=== PATIENT | male | born 1980 | race Caucasian/White ===

== ENCOUNTER 2022-06-08 22:29 | Emergency (ER) | payer OTHER ==
[2022-06-08 22:41] VITALS: TEMP 98.6
--- NOTE | 2022-06-08 23:23 | XR ---
EXAMINATION TYPE: XR hand limited RT DATE OF EXAM: 06/08/2022 COMPARISON: NONE HISTORY: Pain TECHNIQUE: 2 view FINDINGS: Metacarpals are intact. The fingers are intact. I see no fracture nor dislocation. No sizab le foreign body. IMPRESSION: Negative right hand exam. No fracture.
--- NOTE | 2022-06-08 23:28 | XR ---
EXAMINATION TYPE: XR wrist complete RT DATE OF EXAM: 06/08/2022 COMPARISON: NONE HISTORY: Pain and swelling TECHNIQUE: 4 views FINDINGS: The carpal bones are intact. I see no fracture nor dislocation. Metacarpals are intact. Rad iocarpal joint appears normal. IMPRESSION: Negative right wrist exam.
--- NOTE | 2022-06-08 23:28 | XR ---
EXAMINATION TYPE: XR forearm RT DATE OF EXAM: 06/08/2022 COMPARISON: NONE HISTORY: Pain and swelling TECHNIQUE: 2 views FINDINGS: Radius and ulna appear intact. Elbow joint and wrist joint appear intact. IMPRESSION: Negative right forearm exam
--- NOTE | 2022-06-08 23:30 | XR ---
EXAMINATION TYPE: XR elbow complete RT DATE OF EXAM: 06/08/2022 COMPARISON: NONE HISTORY: Pain TECHNIQUE: 3 views FINDINGS: There is no evidence of fracture nor dislocation. Joint spaces are normal. No sign of elbow joint effusion. IMPRESSION: Negative right elbow exam.
[2022-06-09] MEDS ORDERED: methocarbamoL 750 MG TAB PO STA (00:18)
[2022-06-09] MEDS ORDERED: BACITRACIN OINT 1 EACH PACKET TOPICAL ONE (00:18)
--- NOTE | 2022-06-09 00:21 | ED ---
General Adult HPI - General Chief complaint: Extremity Injury, Upper Stated complaint: Right wrist and hand Injury Time Seen by Provider: 06/09/22 00:02 Source: patient, family Mode of arrival: ambulatory Limitations: no limitations - History of Present Illness Initial comments: This is a 42-year-old male with no past medical history presents emergency department after an injury to his right arm. The patient stated that it got stuck in an engine lathe while he did have a glove on his arm and it did twist his arm. The patient stated this happened approximately one hour prior to arrival. The patient was given 600 mg of Motrin on arrival and had improvement of his pain. The patient had decreased range of motion in the hand but was able to move it but was decreased secondary to pain. The patient denied any other pain or trauma at this time. The patient had good capillary refill in his upper extremities and had no numbness or tingling noted. - Related Data Previous Rx's Medication Instructions Recorded methocarbamoL [Robaxin-750] 750 mg PO TID #52 tab 06/09/22 Allergies Allergy/AdvReac Type Severity Reaction Status Date / Time No Known Allergies Allergy Verified 06/08/22 22:41 Review of Systems ROS Statement: Those systems with pertinent positive or pertinent negative responses have been documented in the HPI. ROS Other: All systems not noted in ROS Statement are negative. Past Medical History Additional Past Medical History / Comment(s): migraine History of Any Multi-Drug Resistant Organisms: None Reported Past Surgical History: Hernia Repair Past Psychological History: No Psychological Hx Reported Smoking Status: Vaper Past Alcohol Use History: Occasional Past Drug Use History: None Reported General Exam Limitations: no limitations General appearance: alert, in no apparent distress Head exam: Present: atraumatic, normocephalic Eye exam: Present: normal appearance, PERRL Pupils: Present: normal accommodation ENT exam: Present: normal exam, normal oropharynx, mucous membranes moist Neck exam: Present: normal inspection, full ROM Respiratory exam: Present: normal lung sounds bilaterally Cardiovascular Exam: Present: regular rate, normal rhythm GI/Abdominal exam: Present: soft, normal bowel sounds Extremities exam: Present: other (Tenderness to palpation to the right dorsal wrist with decreased range of motion secondary to pain. There was an abrasion noted to the ventral aspect of the right forearm however there was no obvious deformities noted) Back exam: Present: normal inspection, full ROM Neurological exam: Present: alert, oriented X3, CN II-XII intact Psychiatric exam: Present: normal affect, normal mood Skin exam: Present: warm, dry Course Vital Signs 06/08/22 22:34 Temperature 98.6 F Pulse Rate 84 Respiratory 20 Rate Blood Pressure 130/89 O2 Sat by Pulse 99 Oximetry Medical Decision Making - Medical Decision Making The patient was seen and evaluated in the emergency department. Physical exam, the patient was resting in bed without any acute distress. Vital signs admission were stable. X-rays of the right wrist, right hand, right elbow and right forearm were obtained and were interpreted by myself. All x-rays were negative for any acute fractures or abnormalities. The patient did have decreased range of motion secondary to pain however denied of any deformities or abnormalities noted and was deemed stable for discharge. The patient was placed in an Nathanael bandage and was given Robaxin for muscle spasms. The patient was also given a prescription for this medication as well. The patient was advised to use Motrin at home for continued discomfort. The patient was advised to report back to the emergency department if his pain became acutely worse and to follow- up with his primary care physician for further workup and evaluation. The patient was agreeable to this and all his questions were answered. The patient was discharged home in stable condition. Disposition Clinical Impression: Hand sprain, Contusion of soft tissue, Abrasion Disposition: HOME SELF-CARE Condition: Stable Prescriptions: methocarbamoL [Robaxin-750] 750 mg PO TID #52 tab Is patient prescribed a controlled substance at d/c from ED?: No Referrals: Tiffanie Cuadra MD [Primary Care Provider] - 1-2 days Time of Disposition: 00:20
[2022-06-09 02:22] VITALS: BP 132/76; PULSE 88; RESP 16
== END 2022-06-09 00:40 | disposition home or self-care (01) ==
LOC: EC 22:29
DX: S50.811A Abrasion of right forearm, initial encounter (principal); S63.501A Unspecified sprain of right wrist, initial encounter; M79.81 Nontraumatic hematoma of soft tissue; F17.290 Nicotine dependence, other tobacco product, uncomplicated; W22.8XXA Striking against or struck by other objects, initial encounter
CPT/HCPCS: 99283

== ENCOUNTER 2023-02-14 04:09 | Emergency (ER) | payer OTHER ==
[2023-02-14 04:17] VITALS: RESP 18; TEMP 97.7
[2023-02-14] MEDS ORDERED: PROPARACAINE 0.5% OPHTH DROPS 15 ML BTL BOTH EYES STA (04:30)
[2023-02-14] MEDS ORDERED: FLUORESCEIN STRIPS 1 MG STRIP LEFT EYE ONE (04:35)
--- NOTE | 2023-02-14 04:40 | ED ---
Eye Problem HPI - General Chief complaint: Eye Problems Stated complaint: eye injury Source: patient Mode of arrival: ambulatory Limitations: no limitations - History of Present Illness Initial comments: This patient's 43-year-old man who presents to have evaluation of left eye foreign body sensation. He states that he had been using a chainsaw without any safety glasses and that he believes fragment would had gone into his eye. The patient believes that the surface was abraded. Denies change in vision. chief complaint: eye pain Onset/Timin -: hour(s) Onset Description: sudden Location: left eye Place: street/outdoors If Injury: other Eye Symptoms: redness, foreign body sensation Severity: moderate If Pain, Quality: sharp Consistency: constant Associated Symptoms: none - Related Data Patient Tetanus UTD: Yes Previous Rx's Medication Instructions Recorded methocarbamoL [Robaxin-750] 750 mg PO TID #52 tab 06/09/22 Acetaminophen-Codeine 300-30mg 1 tab PO Q4H PRN #12 tablet 02/14/23 [Tylenol w/codeine #3] Acetaminophen-Codeine 300-30mg 1 tab PO Q6H PRN 3 Days #12 tablet 02/14/23 [Tylenol w/codeine #3] Allergies Allergy/AdvReac Type Severity Reaction Status Date / Time No Known Allergies Allergy Verified 02/14/23 04:17 Review of Systems ROS Statement: Those systems with pertinent positive or pertinent negative responses have been documented in the HPI. ROS Other: All systems not noted in ROS Statement are negative. Constitutional: Denies: fever Eyes: Reports: as per HPI, eye pain. Denies: eye discharge, vision change ENT: Denies: congestion Respiratory: Denies: cough, dyspnea Skin: Denies: rash Neurological: Denies: headache Past Medical History Additional Past Medical History / Comment(s): migraine History of Any Multi-Drug Resistant Organisms: MRSA Date of last positivie culture/infection: 2017 MDRO Source:: Abdomen Past Surgical History: Hernia Repair Past Psychological History: No Psychological Hx Reported Smoking Status: Current every day smoker, Vaper Past Alcohol Use History: Occasional Past Drug Use History: None Reported General Exam Limitations: no limitations General appearance: alert, in no apparent distress Head exam: Present: atraumatic, normocephalic Eye exam: Present: PERRL, EOMI, conjunctival injection. Absent: scleral icterus, nystagmus Expanded Eyelids: Normal Inspection: Left Pupils: Regular, Round: Bilateral, Reactive: Bilateral Sclera/Conjunctival: Injection: Left, Foreign Body: Left Anterior chamber: Normal Inspection: Left Posterior chamber: Deferred: Bilateral Neurological exam: Present: alert Skin exam: Present: warm, dry, intact, normal color. Absent: rash Course Vital Signs 02/14/23 02/14/23 04:15 05:15 Temperature 97.7 F 97.7 F Pulse Rate 73 74 Respiratory 18 18 Rate Blood Pressure 129/80 121/78 O2 Sat by Pulse 97 97 Oximetry Medical Decision Making - Medical Decision Making This patient is 43-year-old man evaluated for suspected foreign body left eye. I saw the patient and examined after placing topical anesthesia. I did jeferson the lids and there appeared to be small shaving of wood. I irrigated the lids and then swept using Applicator. Stain was applied and there is small abrasion over portion of the cornea. Slit lamp examination does not reveal then draped. The anterior chambers clear. The cornea is clear and thin. Was pt. sent in by a medical professional or institution (, PA, WELLNESS GUIDE, urgent care, hospital, or usp...) When possible be specific @ -[No] Did you speak to anyone other than the patient for history (EMS, parent, family, police, friend...)? What history was obtained from this source @ -[No] Did you review nursing and triage notes (agree or disagree)? Why? @ -[I reviewed and agree with nursing and triage notes] Were old charts reviewed (outside hosp., previous admission, EMS record, old EKG, old radiological studies, urgent care reports/EKG's, usp records)? Report findings @ -[No old charts were reviewed] Differential Diagnosis (chest pain, altered mental status, abdominal pain women, abdominal pain men, vaginal bleeding, weakness, fever, dyspnea, syncope, he adache, dizziness, GI bleed, back pain, seizure, CVA, palpatations, mental health, musculoskeletal)? @ -[Differential diagnosis of the patient's eye symptoms includes foreign body, corneal abrasion, acute angle-closure glaucoma, iritis, uveitis, globe rupture, amongst other conditions EKG interpreted by me (3pts min.). @ -[ X-rays interpreted by me (1pt min.). @ -[None done] CT interpreted by me (1pt min.). @ -[None done] U/S interpreted by me (1pt. min.). @ -[None done] What testing was considered but not performed or refused? (CT, X-rays, U/S, labs)? Why? @ -[None] What meds were considered but not given or refused? Why? @ -[None] Did you discuss the management of the patient with other professionals (professionals i.e. , PA, WELLNESS GUIDE, lab, RT, psych nurse, social services manager, lumber marker, teacher, chief operations officer, assistant case manager)? Give summary @ -[No] Was smoking cessation discussed for >3mins.? @ -[No] Was critical care preformed (if so, how long)? @ -[No] Were there social determinants of health that impacted care today? How? (Homelessness, low income, unemployed, alcoholism, drug addiction, transportation, low edu. Level, literacy, decrease access to med. care, senior care, rehab)? @ -[No] Was there de-escalation of care discussed even if they declined (Discuss DNR or withdrawal of care, Hospice)? DNR status @ -[No] What co-morbidities impacted this encounter? (DM, HTN, Smoking, COPD, CAD, Cancer, CVA, ARF, Chemo, Hep., AIDS, mental health diagnosis, sleep apnea, morbid obesity)? @ -[None] Was patient admitted / discharged? Hospital course, mention meds given and route, prescriptions, significant lab abnormalities, going to OR and other pertinent info. @ -[I saw and evaluated the patient including slit lamp examination. I did jeferson the lids and irrigate. I did perform examination with fluorescein stain. The patient to apply topical antibiotic for next days and to follow with ophthalmology, return here if any symptoms worsen or if there is difficulty with follow-up plan Undiagnosed new problem with uncertain prognosis? @ -[No] Drug Therapy requiring intensive monitoring for toxicity (Heparin, Nitro, Insulin, Cardizem)? @ -[No] Were any procedures done? @ -[No] Diagnosis/symptom? @ -[Acute corneal abrasion Acute foreign body, eye Acute, or Chronic, or Acute on Chronic? @ -[Acute Uncomplicated (without systemic symptoms) or Complicated (systemic symptoms)? @ -[default] Side effects of treatment? @ -[No] Exacerbation, Progression, or Severe Exacerbation? @ -[No] Poses a threat to life or bodily function? How? (Chest pain, [place], [place], pneumonia, PE, COPD, DKA, ARF, appy, cholecystitis, CVA, Diverticulitis, Homicidal, Suicidal, threat to staff... and all critical care pts) @ -[Foreign body to the eye or eye infection may represent threat to vision Disposition Clinical Impression: Corneal abrasion Disposition: HOME SELF-CARE Condition: Good Instructions (If sedation given, give patient instructions): Abrasion (ED) Prescriptions: Acetaminophen-Codeine 300-30mg [Tylenol w/codeine #3] 1 tab PO Q4H PRN #12 tablet PRN Reason: Pain Acetaminophen-Codeine 300-30mg [Tylenol w/codeine #3] 1 tab PO Q6H PRN 3 Days #12 tablet PRN Reason: Pain Is patient prescribed a controlled substance at d/c from ED?: Yes Referrals: Tiffanie Cuadra MD [Primary Care Provider] - 1-2 days Tobias Lazcano MD [STAFF PHYSICIAN] - 1-2 days
[2023-02-14] MEDS ORDERED: ERYTHROMYCIN 5 MG/GM OPHTH OINT 3.5 GM TUBE LEFT EYE STA (04:59)
[2023-02-14 05:18] VITALS: BP 121/78; PULSE 74
== END 2023-02-14 05:15 | disposition home or self-care (01) ==
LOC: EC 04:09
DX: S05.02XA Injury of conjunctiva and corneal abrasion without foreign body, left eye, initial encounter (principal); F17.290 Nicotine dependence, other tobacco product, uncomplicated; W29.3XXA Contact with powered garden and outdoor hand tools and machinery, initial encounter
CPT/HCPCS: 99283

== ENCOUNTER 2023-12-30 19:18 | Outpatient (CLI) | payer OTHER ==
--- NOTE | 2024-01-16 22:10 | P.PCN ---
Date of Procedure: 12/30/23 Operative Findings: Polysomnography report Date of services 12/30/2023 History 43-year-old male patient presented to me with excessive daytime sleepiness. He is a and he was in the [employer] and he has worked in a [employer] for a total of 20 years. He goes to bed around 10 PM, wakes up 6 AM in the morning. He has some chronic anxiety and depression without PTSD. He utilizes trazodone. His current [place] score is at 18. He also reported difficulties in sleep induction and maintenance. A screening polysomnography was ordered accordingly Pertinent physical findings The patient's weight is 197 pounds with a body mass index of 30 Technical description The patient was studied using a standard complex polysomnography protocol that included recording of the 2 EKG, Central, occipital and frontal EEG, right and left outer canthus EOG, submental EMG, right and left anterior tibialis EMG, res piratory airflow by thermocouple and or pressure/flow transducer, respiratory efforts by abdominal and thoracic PVDF belts, oxygen saturation by cable oximetry. Position by observation synchronized the PSG. Equipment used: [employer]. Sleep architecture The total recording duration was 486.0 minutes. The total sleep time was 433.0 minutes. The overall sleep latency was 89%. The latency to sleep onset was 15.5 minutes. The latency to REM sleep was 128 minutes. The sleep architecture was characterized by 8.1% stage I, 60.7% stage II, 8.5% stage III and 22.6% REM sleep. The total arousal index was 24.5. The wake after sleep onset time was 37 minutes. Respiratory analysis The respiratory analysis showed a total of 104 obstructive apneas of which 6 were obstructive apneas, 0 were mixed apneas and 19 were obstructive hypopneas. The resulting AHI was 15.2. The patient also encountered a total of 10 central apneas with a central apnea index of 1.4. The respiratory arousal index was 4.3. The baseline pulse ox was 95% while awake. Lowest oxygen saturation was 83%. The patient spent approximately 30 minutes of sleep time below pulse ox of 89%. Sleep continuity summary The patient had a total of 177 arousals with an arousal index of 24.5. The respiratory arousal index was 4.3 Periodic limb movement activity The patient encountered a total of 229 periodic leg movement activities with a history of 31.7, only 2 periodic limb movement activity with arousals with an index of 0.3 Cardiac summary Average heart rate was 71 minimum heart of 66 and a maximum heart rate of 77 Assessment Mild obstructive sleep apnea with an AHI of 15.2 Mild nocturnal oxygen desaturation with a minimum pulse ox of 83% recording during REM sleep Periodic limb movement activity, not associated with any arousals Increased arousal index, partly related to sleep breathing disorder Chronic anxiety/depression maintained on trazodone 50 mg at bedtime Plan Will discuss findings with the patient Will discuss the possibility of CPAP therapy to optimize his sleep quality and maintenance. Ideally would like to undergo a full titration of this patient in the lab. If unable to perform an in lab titration, will offer him a trial of APAP therapy. Will continue to follow.
== END 2023-12-31 05:20 | disposition home or self-care (01) ==
LOC: 3 N SLEEP 19:18
PROVIDERS: ATTEND Internal Medicine Critical Care Medicine
DX: G47.33 Obstructive sleep apnea (adult) (pediatric) (principal); G47.36 Sleep related hypoventilation in conditions classified elsewhere; G47.61 Periodic limb movement disorder; F41.9 Anxiety disorder, unspecified; F32.A Depression, unspecified
CPT/HCPCS: 95810

== ENCOUNTER 2024-02-06 19:15 | Outpatient (CLI) | payer OTHER ==
--- NOTE | 2024-02-29 22:21 | P.PCN ---
Date of Procedure: 02/06/24 Operative Findings: CPAP titration report Date of service is 02/06/2024 Pertinent history 43-year-old male patient presented to me with excessive daytime sleepiness. He is a and he was in the [employer] and he has worked in a [employer] for a total of 20 years. He goes to bed around 10 PM, wakes up 6 AM in the morning. He has some chronic anxiety and depression without PTSD. He utilizes trazodone. His current [place] score is at 18. He also reported difficulties in sleep induction and maintenance. Based on that, the patient underwent a screening polysomnography and the patient was found to have mild to moderate ELIZABETH with an AHI of 15.3 associated with some mild nocturnal oxygen desaturation. Patient also demonstrated periodic limb movement activity. The patient had an increased arousal index. The overall sleep efficiency was calculated to be in the order of 89%. The patient had an [place] score of 18. Based on that, the patient was asked to come into the sleep center to undergo a CPAP titration. Technical description The patient was studied using a standard complex polysomnography protocol that included recording of the Lead II EKG, Central, occipital and frontal EEG, right and left outer canthus EOG, submental EMG, right and left anterior tibialis EMG, respiratory airflow by thermocouple and or pressure/flow transducer, respiratory efforts by abdominal and thoracic PVDF belts, oxygen saturation by cable oximetry. Position by observation synchronized the PSG. Equipment used: [email or web address]. Stepwise CPAP titration was done to eliminate obstructive respiratory events Sleep architecture The total recording duration was 454 minutes. The total sleep time was 4 to 7 minutes. Sleep efficiency was calculated to be at 89.7%. Latency to sleep onset was 9.5 minutes. Latency to REM sleep was 74.5 minutes. The sleep architecture was characterized by 10.1% stage I, 65.4% stage II, 2.2% stage III, and the patient had a 22.4% REM sleep. CPAP titration The patient was started on CPAP therapy initially at a pressure of 4 cm of water and the pressure was gradually to be by increments of 1 cm to reach a maximum pressure of 11 cm of water. There was obvious improvement obstructive respiratory events at a pressure of 8 cm of water. At CPAP pressures of 9,10 a nd 11 cm, the patient had emergence of some central events. Based on that, a target CPAP pressure of 8 cm of water will be chosen to treat this patient's obstructive sleep apnea. Noted oxygenation is improved and the patient did not encounter any significant oxygen desaturations at the very CPAP pressures utilize Periodic limb movement activity The patient had a total of 174 periodic limb movement activity with an index of 25.7 Respiratory arousal index The respiratory arousal index was 1.5. There was a total of 99 arousals with an arousal index of 14.6. Arousal index related to limb movements was in the order of 1.8 Cardiac summary The average heart rate was 68 with a minimum heart rate of 44 and a maximum heart of 126 Assessment Mild obstructive sleep apnea with an AHI of 15.2, the patient underwent a successful CPAP titration Mild nocturnal oxygen desaturation improved with CPAP therapy Periodic limb movement activity, not associated with any arousals Increased arousal index, partly related to sleep breathing disorder, improved with CPAP therapy Chronic anxiety/depression maintained on trazodone 50 mg at bedtime Plan Will treat this patient with a CPAP pressure of 8 cm of water with a C-Flex of 3. Emergence of central events were noted at higher CPAP pressures. The patient was provided an AirFit N30 medium size fullface mask. The patient was seen back in office in 30 to 90 days for a compliancy check. Will make further adjustments and will make further recommendations based on the patient's overall clinical response.
== END 2024-02-07 05:40 | disposition home or self-care (01) ==
LOC: 3 N SLEEP 19:15
PROVIDERS: ATTEND Internal Medicine Critical Care Medicine
CPT/HCPCS: 95811